=== PATIENT | male | born 1970 | race Caucasian/White ===

== ENCOUNTER → 2023-08-03 09:44 | Outpatient (REF) | payer SELFPAY | LOC: RAD 09:44 | PROVIDERS: ATTENDING PHYSICIAN Family Medicine | DX: E78.2 Mixed hyperlipidemia (principal) | CPT/HCPCS: 75571 ==

== ENCOUNTER → 2023-09-14 11:14 | Outpatient (REF) | payer OTHER, SELFPAY | LOC: RAD 11:14 | PROVIDERS: ATTENDING PHYSICIAN Family Medicine | DX: Z87.898 Personal history of other specified conditions (principal); E78.2 Mixed hyperlipidemia | CPT/HCPCS: 93880 ==